=== PATIENT | female | born 1950 | race Caucasian/White ===

== ENCOUNTER → 2017-01-11 | Outpatient (CLI) | payer OTHER | END | disposition home or self-care (01) | LOC: PCVCIMAG 12:41 | PROVIDERS: ATTEND Internal Medicine | DX: I71.2 Thoracic aortic aneurysm, without rupture (principal); E78.5 Hyperlipidemia, unspecified | CPT/HCPCS: 80061; 93005; 93306; G0463 ==

== ENCOUNTER → 2019-01-13 | Outpatient (CLI) | payer OTHER ==
--- NOTE | 2019-01-13 15:51 | PCVCIMAG ---
APPROVED REPORT Study performed: 01/13/2019 13:05:29 EXAM: Comprehensive 2D, Doppler, and color-flow Echocardiogram Patient Location: Echo lab Status: routine BSA: 1.85 HR: 65 bpmBP: 140/80 mmHg Rhythm: NSR Other Information Study Quality: Good Risk Factors: Cardiac Risk Factors: HTN, Hyperlipidemia Indications Aortic Stenosis, Thoracic Aortic Aneurysm 2D Dimensions IVSd: 10.95 (7-11mm)LVOT Diam: 20.07 (18-24mm) LVDd: 41.83 mm PWd: 9.76 (7-11mm)Ascending Ao: 42.24 (22-36mm) LVDs: 18.55 (25-40mm) Left Atrium: 31.40 (27-40mm) Aortic Root: 32.55 mm Volumes Left Atrial Volume (Systole) Single Plane 4CH: 66.06 mLSingle Plane 2CH: 51.23 mL LA ESV Index: 34.00 mL/m2 Aortic Valve AoV Peak Devin.: 2.35 m/s AO Peak Gr.: 22.13 mmHgLVOT Max P.40 mmHg AO Mean Gr.: 13.70 mmHgLVOT Mean P.53 mmHg AO V2 Mean: 1.78 m/sLVOT Max V: 1.16 m/s AO V2 VTI: 54.74 cmLVOT Mean V: 0.91 m/s JUAN (VTI): 1.57 [id number] V1 VTI: 27.12 cm JUAN Vmax: 1.56 cm2 SV (LVOT): 85.72 mL Mitral Valve E/A Ratio: 0.8 MV Decel. Time: 279.17 ms MV E Max Devin.: 0.98 m/s MV A Devin.: 1.19 m/s IVRT: 124.57 ms TDI E/Lateral E': 14.00E/Medial E': 16.33 Medial E' Devin.: 0.06 m/s Lateral E' Devin.: 0.07 m/s Pulmonary Valve PV Peak Gr.: 1.92 mmHg Pulmonary Vein P Vein S: 0.64 m/sP Vein A: 0.34 m/s P Vein D: 0.37 m/sP Vein A Dur.: 103.8 msec P Vein S/D Ratio: 1.73 Tricuspid Valve TR Peak Devin.: 2.20 m/s TR Peak Gr.: 19.33 mmHg Left Ventricle The left ventricle is normal size. There is normal LV segmental wall motion. There is normal left ventricular wall thickness. Left ventricular systolic function is normal. The left ventricular ejection fraction is within the normal range. LVEF is 60-65%. Mild diastolic dysfunction is present (impaired relaxation pattern). Right Ventricle The right ventricle is normal size. The right ventricular systolic function is normal. Atria The left atrium size is normal. The right atrium size is normal. Aortic Valve Aortic valve is trileaflet, moderately thickened. No aortic regurgitation is present. Aortic Valve peak gradient is 23mmHg. Mean gradient is 14mmHg. Calculated Aortic Valve is 1.6cm2. Mitral Valve Mild mitral annular calcification. There is no mitral valve regurgitation noted. No evidence of mitral valve stenosis. Tricuspid Valve The tricuspid valve is normal in structure. Trace tricuspid regurgitation. Pulmonary artery pressure is 27mmHg. Pulmonic Valve The pulmonary valve is normal in structure. Trace pulmonic regurgitation. Great Vessels The aortic root is normal in size. The ascending aorta is dilated (4.2cm). IVC is normal in size and collapses >50% with inspiration. Pericardium There is no pericardial effusion. <Conclusion> Left ventricular systolic function is normal. There is normal LV segmental wall motion. LVEF is 60-65%. Mild diastolic dysfunction Aortic valve is trileaflet, moderately thickened. Aortic Valve peak gradient is 23mmHg. Mean gradient is 14mmHg. Calculated Aortic Valve is 1.6cm2. Mild mitral annular calcification. No mitral valve regurgitation. Trace tricuspid regurgitation. Pulmonary artery pressure of 27mmHg. The ascending aorta is dilated (4.2cm). There is no pericardial effusion.
== END | disposition home or self-care (01) ==
LOC: PCVCIMAG 12:51
PROVIDERS: ATTEND Internal Medicine
DX: I71.2 Thoracic aortic aneurysm, without rupture (principal); I35.0 Nonrheumatic aortic (valve) stenosis; E78.5 Hyperlipidemia, unspecified; E78.00 Pure hypercholesterolemia, unspecified; Z87.891 Personal history of nicotine dependence
CPT/HCPCS: 93306